=== PATIENT | female | born 1950 | race Caucasian/White ===

== ENCOUNTER → 2016-05-10 | Outpatient (CLI) | payer OTHER ==
[2016-05-10 08:14] LABS: CREATININE 0.8 mg/dL (0.6-1.3)
== END ==
LOC: CAT 07:36
PROVIDERS: Otolaryngology Plastic Surgery within the Head & Neck
DX: M26.601 Right temporomandibular joint disorder, unspecified (principal); J31.0 Chronic rhinitis; R68.84 Jaw pain; K08.89 Other specified disorders of teeth and supporting structures

== ENCOUNTER → 2017-02-06 | Outpatient (CLI) | payer OTHER ==
[~2017-02-06] VITALS: Ht 162.6 cm; Wt 68.0 kg
[~2017-02-06] MED LIST: IBUPROFEN 800800 M1 PO; NABUMETONE 500500 M1 PO; SINGULAIR 10 MG10 M1 PO
--- NOTE | ~2017-02-06 | HPC ---
[facility] [address] [address] PAIN MANAGEMENT CONSULTATION Name: KEVIN MALDONADO Room #: [facility].#: [id number] Admission: 02/06/17 Attend Phys: Kevin Betancourt DO Discharge: Date of : 52 Report #: [id number] THIS REPORT FOR: //name// CC: Lynnette Betancourt The patient is a pleasant 66-year-old female, seen in consultation at the request of Dr. Triana for evaluation of pain, low back and left leg. The patient denies antecedent trauma, notes pain began in November, progressed with radiation into the foot, which is episodic, down the lateral leg and daily back pain. She has been taking ibuprofen with nominal efficacy, range of motion and exercise have failed to alleviate symptoms. She denies weakness, paresthesia saddle anesthesia or bowel or bladder continence changes. She does; however, describe pain, she rates a 5 on VAS as an aching sensation in the back, again episodic, radiation into the lateral left leg down to the foot. The patient notes the pain is exacerbated with sitting too long and then getting up. She gets some relief when she is walking. REVIEW OF SYSTEMS: A complete review of systems was attached to chart and was gone over with the patient. She is , does not smoke or drink alcohol to excess. She has enjoyed a reasonably good health, had suffered from hemorrhoids recently, in fact she has an appointment on March 02, to see a colorectal surgeon. She has a little bit of reactive airway disease for which she takes Singulair. She has had 2 C-sections in 1974 and 1981. She works as a machine setter supervisor, she continues to work despite pain. Pain impact score averages about 28/70. PHYSICAL EXAMINATION: Reveals a 5 feet 4 inches, 150 pounds female, BMI is 25.7 kg/m2. Vital signs are stable as noted on the EMR with modest hypertension (blood pressure 140/93). Cranial nerves 2-12 are grossly intact. Pupils are equal and react to light and accommodation. Extraocular muscles are intact. Thyroid is unremarkable. Upper extremity strength is preserved. Heart is regular rhythmical without murmur. Lungs are clear to auscultation. Abdomen is benign. Rises from chair using armrest. Mild decreased right dorsiflexion, in fact the patient states occasionally she will trip over a throw rugs with the right foot. Lumbar flexion is good to 90 degrees. Diffuse axial back tenderness. No discrete trigger points are noted. Pain is noted from about L4 down. Right leg does show diminish strength to dorsiflexion, lower extremity extension about 3/5, left leg is a little bit stronger at 4/5. Straight leg raise is negative. Patellar and Achilles reflexes shows modest diminution on the right side compared to the left. Skin integument is intact. DIAGNOSTIC STUDIES: There are no recent diagnostic studies available for evaluation at this time. [address] [address] PAIN MANAGEMENT CONSULTATION Name: KEVIN MALDONADO Room #: [facility] ILYA Buck#: [id number] Admission: 02/06/17 Attend Phys: Kevin Betancourt DO Discharge: Date of : 52 Report #: [id number] ASSESSMENT: Symptomatic lumbar radiculopathy by clinical exam and history, having failed conservative therapy. RECOMMENDATIONS: 1. We will seek authorization for epidural injection under fluoroscopy at L4-L5. 2. Discontinue [id number] Aleve, we will start the patient on nabumetone 500 mg b.i.d. Thank you for allowing me to participate in the patient's care. I will keep abreast of her progress. <ELECTRONICALLY SIGNED> By: Kevin Betancourt DO 02/08/17 [id number] Kevin Betancourt DO /nt
[2017-02-06 11:13] VITALS: BP 140/93
== END ==
LOC: PAIN 07:09
DX: M54.16 Radiculopathy, lumbar region (principal); M79.605 Pain in left leg

== ENCOUNTER → 2017-02-24 | Outpatient (CLI) | payer OTHER ==
[~2017-02-24] VITALS: Ht 162.6 cm; Wt 69.0 kg
--- NOTE | ~2017-02-24 | HPC ---
[facility] [place] [address] PAIN MANAGEMENT CONSULTATION Name: KEVIN MALDONADO Axel Room #: [facility] Roxi.#: [id number] Admission: 02/24/17 Attend Phys: Kevin Betancourt DO Discharge: Date of : 52 Report #: [id number] THIS REPORT FOR: //name// CC: Lynnette Betancourt The patient is a very pleasant 66-year-old female who was seen in consultation on 02/06/2017 diagnosed with symptomatic lumbar radiculopathy who presents to pain clinic today for prior authorized epidural injection at L4-L5. PROCEDURE: Lumbar epidural injection under fluoroscopy. PROCEDURE NOTE: After both written and informed consent to include risk of spinal cord damage, increased pain, weakness and dural puncture, the patient was taken to the fluoroscopy suite, placed in the prone position. After sterile prep and drape, a skin wheal with lidocaine was raised. A 22-gauge epidural Tuohy needle was inserted in the midline at L4-L5 with good loss to resistance. Negative aspiration for cerebrospinal fluid or blood was noted. Then 1 mL of Omnipaque under biplanar fluoroscopy showed good spread within the epidural space. This was followed with 80 mg of triamcinolone plus 1 mL of 1.5% preservative-free Xylocaine, 0.5 mL Xylocaine was then injected to flush the needle; it was removed. The patient was monitored for an appropriate period of time and discharged in good and stable condition. <ELECTRONICALLY SIGNED> By: Kevin Betancourt DO 02/27/17 0731 [id number] Kevin Betancourt DO /nt
[2017-02-24 13:58] VITALS: BP 137/71
== END | disposition home or self-care (01) ==
LOC: PAIN 06:50
DX: M54.16 Radiculopathy, lumbar region (principal)

== ENCOUNTER 2018-05-10 18:32 | Emergency (ER) | payer OTHER ==
[~2018-05-10] VITALS: Ht 165.1 cm; Wt 67.1 kg
[2018-05-10] MEDS ORDERED: NORCO 5-325 TA1 EACH PO (21:51)
[2018-05-10 22:02] VITALS: BP 150/97
== END 2018-05-10 22:03 | disposition home or self-care (01) ==
LOC: ER 18:32
DX: S00.03XA Contusion of scalp, initial encounter (principal); Z98.890 Other specified postprocedural states; W22.8XXA Striking against or struck by other objects, initial encounter; Y93.89 Activity, other specified; Y92.89 Other specified places as the place of occurrence of the external cause; Y99.8 Other external cause status

== ENCOUNTER 2018-05-15 10:01 | Emergency (ER) | payer OTHER ==
[~2018-05-15] VITALS: Ht 165.1 cm; Wt 67.1 kg
[~2018-05-15 10:01] MED LIST changes: +NORCO 5-325 TA1 EACH PO
[2018-05-15] MEDS ORDERED: CYCLOBENZAPRINE5 MG PO (12:18)
[2018-05-15] MEDS ORDERED: BUTALB-APAP-CA1 EACH PO (12:18)
[2018-05-15 12:44] VITALS: BP 123/70
== END 2018-05-15 12:44 | disposition home or self-care (01) ==
LOC: ER 10:01
DX: S00.03XA Contusion of scalp, initial encounter (principal); M54.2 Cervicalgia; Z98.890 Other specified postprocedural states; W22.8XXA Striking against or struck by other objects, initial encounter; Y93.89 Activity, other specified; Y92.89 Other specified places as the place of occurrence of the external cause; Y99.8 Other external cause status

== ENCOUNTER 2018-05-21 10:03 | Emergency (ER) | payer OTHER ==
[~2018-05-21] VITALS: Ht 165.1 cm; Wt 68.0 kg
[~2018-05-21 10:03] MED LIST changes: +BUTALB-APAP-CA1 EACH PO; +CYCLOBENZAPRINE5 MG PO
[2018-05-21] MEDS ORDERED: MOBIC15 MG PO (11:40)
[2018-05-21] MEDS ORDERED: VALIUM5 MG PO (11:40)
[2018-05-21 12:03] VITALS: BP 132/65
== END 2018-05-21 12:12 | disposition home or self-care (01) ==
LOC: ER 10:03
DX: S16.1XXA Strain of muscle, fascia and tendon at neck level, initial encounter (principal); S09.8XXA Other specified injuries of head, initial encounter; Z98.890 Other specified postprocedural states; W22.8XXA Striking against or struck by other objects, initial encounter; Y92.89 Other specified places as the place of occurrence of the external cause; Y93.89 Activity, other specified; Y99.8 Other external cause status

== ENCOUNTER → 2021-03-25 | Outpatient (CLI) | payer OTHER ==
[~2021-03-25] MED LIST changes: +MOBIC15 MG PO; +VALIUM5 MG PO
== END ==
LOC: RAD 12:57
PROVIDERS: ATTEND Internal Medicine Pulmonary Disease
DX: U07.1 COVID-19 (principal); J12.82 Pneumonia due to coronavirus disease 2019; M51.34 Other intervertebral disc degeneration, thoracic region